=== PATIENT | male | born 2000 | race Two or more races ===

== ENCOUNTER 2025-07-27 21:27 | Emergency (ER) | payer BC, SELFPAY ==
[2025-07-27 21:28] VITALS: BMI 30.7
[2025-07-27 21:59] VITALS: BP 154/83; PULSE 77; RESP 18; TEMP 36.5; O2SAT 98
--- NOTE | 2025-07-27 22:05 | PD.EDDENTL ---
ED Dental RME/HPI General Chief complaint: Dental/Oral/Throat Stated complaint: UPPER AND LOWER RIGHT SIDED TOOTH PAIN Time Seen by Provider: 07/27/25 21:46 Arrival date/time: 07/27/25 21:27 25-year-old male patient came in for evaluation regarding right upper and lower molar pain. Has been ongoing for the last few days, severity moderate. Patient was seen by a his dentist last Thursday and had dental work done including filling both upper and lower molar. Pain is getting worse. No medication was taken prior to ER visit. Denies any fever denies any difficulty swallowing. Denies any facial swelling. Related Data Previous Rx's ?Medication ?Instructions ?Recorded amoxicillin 875 mg-potassium 1 tab PO BID #14 tabs 02/11/22 clavulanate 125 mg tablet naproxen 500 mg tablet (Naprosyn) 500 mg PO BID #30 tabs 02/11/22 amoxicillin 500 mg capsule 500 mg PO TID #21 caps 07/27/25 ketorolac 10 mg tablet 10 mg PO TID PRN pain #20 tabs 07/27/25 Allergies Allergy/AdvReac Type Severity Reaction Status Date / Time old spice deodorant AdvReac Mild Redness of Uncoded 02/11/22 01:19 Skin Review of Systems Review of Systems Narrative Review of Systems: Review of system reviewed and within normal limits except mentioned in HPI ED Exam Narrative Physical exam: VITAL SIGNS: Reviewed. GENERAL APPEARANCE: Alert and interactive, follows commands, no acute distress, HEAD AND FACE: Non-traumatic. ENT: PERRL, pink conjunctivitis, eyelid no trauma, Mucous membrane moist. Right upper and lower molar dental pain with dental filling and gumline swelling nonfluctuant NECK: Supple, nontender, no nuchal rigidity. RECTAL: Deferred. GENITAL: Deferred. NEUROLOGICAL: Gross motor function intact sensory function intact, Appropriate for age. MUSCULOSKELETAL: low back nontender, full range of motion. EXTREMITIES: Nontender, full range of motion. SKIN: Color pink, dry, no rash, no lacerations, no abrasions, no contusions. LYMPHATICS: Deferred. Course Quality Measures none Orders Category Date Time Status Amoxicillin Cap [Amoxil Cap] Med 07/27/25 22:05 Once 500 mg PO X1 ONE Ketorolac Inj [Toradol Inj] Med 07/27/25 22:05 Once 30 mg IM X1 ONE Vital Signs Vital signs: Vital Signs Temperature 97.7 F 07/27/25 21:59 Pulse Rate 77 07/27/25 21:59 Respiratory Rate 18 07/27/25 21:59 Blood Pressure 154/83 H 07/27/25 21:59 Pulse Oximetry (%) 98 07/27/25 21:59 Oxygen Delivery Method Room Air 07/27/25 21:59 Dental / Oral MDM Narrative MDM Narrative:: 25-year-old male patient came in for evaluation regarding right upper and lower molar pain. Has been ongoing for the last few days, severity moderate. Patient was seen by a his dentist last Thursday and had dental work done including filling both upper and lower molar. Pain is getting worse. No medication was taken prior to ER visit. Denies any fever denies any difficulty swallowing. Denies any facial swelling. Patient data External records reviewed:: None Clinical information provided by:: patient Social determinants that could affect healthcare access:: none Patient has the following chronic illnesses:: None How is presenting disease/condition affected by chronic disease/condition?: no chronic disease Evaluation data The following diagnostics were reviewed and interpreted by me:: other (specify) (None) Lab and/or radiology exams considered but not ordered:: None Interpretation Summary: None Medications / Prescriptions Medications or Prescriptions considered but not ordered:: None Medication administrations:: Medication Administration History Ketorolac Tromethamine (Ketorolac Inj 30 Mg/Ml Vial) 30 mg IM X1 ONE Stop: 07/27/25 22:06 Toradol IM amoxicillin Consultations Consultation(s) initiated? (list below): No Diagnosis Dental Differential Diagnosis: dental caries, toothache and dental abscess Most likely diagnosis given after review of the tests above:: Infected dental caries Admission Indicated Admission indicated?: not indicated Admission Request Was there a request for admission?: No Disposition Plan Disposition Plan: Discharge Discharge Attestation Discharge Attestation: The patient and all family members were given an opportunity to ask questions and understood the discharge instructions. Discharge instructions specifically effects, indications for sooner follow up or return to the emergency department, and the expected course of current diagnosis. Patient condition: Stable Discharge Plan Plan Patient Disposition: HOME (Self Care) Discharge Disposition comment: Stable Prescriptions/Referrals Prescriptions/Med Rec: New amoxicillin 500 mg capsule 500 mg PO TID Qty: 21 0RF ketorolac 10 mg tablet 10 mg PO TID PRN (Reason: pain) Qty: 20 0RF Rx Instructions: maximum total duration of 5 days from all oral, intranasal, or parenteral formulations No Action amoxicillin-pot clavulanate 875-125 mg tablet 1 tab PO BID Qty: 14 0RF naproxen [Naprosyn] 500 mg tablet 500 mg PO BID Qty: 30 0RF Problem List Clinical Impression: Infected dental caries Patient/Caregiver Discharge Instructions Discharge Activity: activity as tolerated Education Materials: Understanding Tooth Decay Additional Instructions: Thank you for the opportunity for serving you today. You are stable for discharged . You are advised to: Follow-up with your dentist in 1 to 2 days Return to ED for worsening of symptoms Increase oral fluids Take medication as prescribed Print Language: Austrian Stand Alone Forms: Zita Award Info., Patient Portal Info Letter PA/SHANNON Supervising Physician LUCIA/SHANNON Supervising Physician: MD Chris
[2025-07-27] MEDS: KETOROLAC INJ 30 MG/ML VIAL IM (22:29)
[2025-07-27] MEDS: AMOXICILLIN 250 MG CAPSULE 500 MG PO (22:30)
== END 2025-07-27 22:50 | disposition home or self-care (01) ==
LOC: SERX 22:36
PROVIDERS: Emergency Provider Nurse Practitioner Family
DX: K02.9 Dental caries, unspecified (principal)
CPT/HCPCS: 96372; 99282; J1885; A9270